=== PATIENT | female | born 1975 | race Caucasian/White ===

== ENCOUNTER 2018-11-09 17:04 | Emergency (ER) | payer OTHER ==
[~2018-11-09] VITALS: Ht 157.5 cm; Wt 58.0 kg
[~2018-11-09 17:04] MED LIST: BACTRIM PO; BUPR100T14 PO; CARAS PO; HALO10TA PO; OMEG-158 PO; PANT40TA4 PO; PRED10TA PO; PRED20TA PO; PRED50TA PO; PRED5TAB PO
[2018-11-09 17:18] VITALS: Ht 157.5 cm; Wt 58.0 kg
[2018-11-09] MEDS ORDERED: ASPIRIN 325 MG TAB PO STA (20:14)
[2018-11-09] MEDS ORDERED: FAMOTIDINE 20 MG INJ IV STA (20:47)
[2018-11-09] MEDS ORDERED: BELLADONNA/PHENOBARBITAL TAB PO STA (20:47)
[2018-11-09] MEDS ORDERED: LIDOCAINE/MYLANTA 40 ML BTL PO STA (20:47)
[2018-11-09] MEDS ORDERED: FAMOTIDINE 20 MG TAB PO ONE (21:30)
[2018-11-10 01:52] VITALS: BP 130/82; PULSE 78; RESP 17
== END 2018-11-10 01:54 | disposition home or self-care (01) ==
LOC: FTE 17:04 → E/R 11-10 01:54
DX: K20.9 Esophagitis, unspecified (principal); G89.29 Other chronic pain; F11.20 Opioid dependence, uncomplicated
CPT/HCPCS: 36415; 80053; 81001; 83690; 84484; 84703; 85025; 85610; 85730; 86850; 86900; 86901; 93005; Z7502; Z7610

== ENCOUNTER 2018-12-14 11:54 | Emergency (ER) | payer OTHER ==
[~2018-12-14] VITALS: Ht 160 cm; Wt 59.3 kg
[~2018-12-14 11:54] MED LIST changes: +ACET325T33 PO; +ASPI-817 PO; +ELTR50TA PO; +ISOS30TA67 PO; +LORA-444 PO; +METO10TA92 PO; +NITR0.4T32 SL; +PANT40TA3 PO; +TRAM50TA PO; +TRAM50TA2 PO
[2018-12-14 12:16] VITALS: Ht 160 cm; Wt 59.3 kg
[2018-12-14] MEDS ORDERED: FAMOTIDINE 20 MG INJ IV STA (14:19)
[2018-12-14] MEDS ORDERED: ONDANSETRON 4 MG INJ IV STA (14:19)
[2018-12-14] MEDS ORDERED: SOD CHLORIDE 0.9% 1,000 ML IV STA (14:19)
[2018-12-14] MEDS ORDERED: HYDROmorphONE 1 MG/ML SYG IV STA (14:19)
[2018-12-14] MEDS ORDERED: LIDOCAINE/MYLANTA 40 ML BTL PO STA (14:19)
[2018-12-14 16:49] VITALS: BP 120/65; PULSE 89; RESP 18
== END 2018-12-14 16:56 | disposition home or self-care (01) ==
LOC: FTE 11:54
DX: K29.70 Gastritis, unspecified, without bleeding (principal)
CPT/HCPCS: 36415; 71045; 80053; 81003; 81025; 83690; 84484; 85025; 93005; 96374; 96375; J1170; J2405; J7030; Z7502; Z7610

== ENCOUNTER 2019-01-15 13:18 | Inpatient (IN) | payer OTHER ==
[~2019-01-15] VITALS: Ht 157.5 cm; Wt 58.4 kg
[~2019-01-15 13:18] MED LIST changes: -ELTR50TA PO; -TRAM50TA PO
[2019-01-15] MEDS ORDERED: METOCLOPRAMIDE 10 MG INJ IV STA (17:17)
[2019-01-15] MEDS ORDERED: morphine 4 MG/ML VIAL IV STA (17:17)
[2019-01-15] MEDS ORDERED: LIDOCAINE/MYLANTA 40 ML BTL PO STA (17:17)
[2019-01-15] MEDS ORDERED: PANTOPRAZOLE 40 MG INJ IV ONE (17:30)
[2019-01-15] MEDS ORDERED: DEXAMETHASONE 10 MG/ML 1 ML INJ IV ONE (17:30)
[2019-01-15] MEDS ORDERED: ONDANSETRON 4 MG INJ IV PRN (19:30)
[2019-01-15] MEDS ORDERED: ACETAMINOPHEN 325 MG TAB PO PRN (19:30)
[2019-01-16] MEDS ORDERED: NACL 0.9% 3 ML SYG IV SCH (02:30)
[2019-01-16] MEDS ORDERED: ONDANSETRON 4 MG INJ IV PRN (02:30)
[2019-01-16] MEDS ORDERED: ACETAMINOPHEN 325 MG TAB PO PRN (02:30)
[2019-01-16] MEDS ORDERED: NITROGLYCERIN (SL) 0.4 MG TAB SL PRN ×2 (02:30→14:30)
[2019-01-16] MEDS ORDERED: ALBUTEROL/IPRATROPIUM (NEB) 3 ML AMP HHN PRN (02:30)
[2019-01-16] MEDS: PANTOPRAZOLE (EC) 40 MG TAB PO SCH (05:03)
[2019-01-16] MEDS ORDERED: OMEGA PO SCH (09:00)
[2019-01-16] MEDS ORDERED: ASPIRIN 81 MG TAB PO SCH (09:00)
[2019-01-16] MEDS ORDERED: DHA PO SCH (09:00)
[2019-01-16] MEDS ORDERED: FISH OIL PO SCH (09:00)
[2019-01-16] MEDS ORDERED: HALOPERIDOL 10 MG TABLET PO SCH (09:00)
[2019-01-16] MEDS ORDERED: EPA PO SCH (09:00)
[2019-01-16] MEDS ORDERED: [UNRECOGNIZED DRUG - OTHER] PO SCH (09:00)
[2019-01-16] MEDS: FISH OIL 1,000 MG CAP PO SCH ×2 (09:27→20:13)
[2019-01-16] MEDS: BUPROPION 100 MG TAB PO SCH ×2 (09:27→21:16)
[2019-01-16] MEDS: SUCRALFATE (100 MG/ML) 10ML CUP PO SCH ×4 (09:31→20:13)
[2019-01-16] MEDS: HALOPERIDOL 10 MG TABLET PO SCH (09:36)
[2019-01-16] MEDS: traMADol 50 MG TAB PO PRN (14:53)
[2019-01-16] MEDS ORDERED: LORAZEPAM 1 MG TAB PO ONE (15:00)
[2019-01-16 16:29] VITALS: Ht 157.5 cm; Wt 58.4 kg
[2019-01-16 16:49] VITALS: BP 110/62; PULSE 67; RESP 18
[2019-01-16 20:00] VITALS: BP 110/61; PULSE 77; RESP 18
[2019-01-16] MEDS: ASPIRIN 81 MG TAB PO SCH ×2 (21:00→21:03)
[2019-01-17] VITALS (7 sets, daily range): BP systolic 106–143; BP diastolic 61–89; PULSE 66–82; RESP 16–18
[2019-01-17] MEDS: PANTOPRAZOLE (EC) 40 MG TAB PO SCH (06:23)
[2019-01-17] MEDS: ASPIRIN 81 MG TAB PO SCH (09:00)
[2019-01-17] MEDS: SUCRALFATE (100 MG/ML) 10ML CUP PO SCH ×4 (09:57→20:40)
[2019-01-17] MEDS: FISH OIL 1,000 MG CAP PO SCH ×2 (09:57→20:40)
[2019-01-17] MEDS: BUPROPION 100 MG TAB PO SCH ×2 (09:57→20:40)
[2019-01-17] MEDS ORDERED: IMMUNE GLOBULIN (GAMUNEX-C) 10 GM/100 ML IV ONE (12:30)
[2019-01-17] MEDS: IMMUNE GLOBULIN (IVIG) 200 ML IVPB SCH ×3 (14:09→17:58)
[2019-01-17] MEDS: traMADol 50 MG TAB PO PRN (20:40)
[2019-01-18] VITALS: BP 122/85; PULSE 79; RESP 18
[2019-01-18 02:00] VITALS: BP 128/73; PULSE 80; RESP 18
[2019-01-18 02:40] VITALS: BP 120/72; PULSE 80; RESP 18
[2019-01-18] MEDS: PANTOPRAZOLE (EC) 40 MG TAB PO SCH (05:46)
[2019-01-18 07:24] VITALS: BP 146/87; PULSE 85; RESP 18
[2019-01-18] MEDS: HALOPERIDOL 10 MG TABLET PO SCH (09:30)
[2019-01-18] MEDS: BUPROPION 100 MG TAB PO SCH (09:30)
[2019-01-18] MEDS: SUCRALFATE (100 MG/ML) 10ML CUP PO SCH ×3 (09:30→17:49)
[2019-01-18] MEDS: FISH OIL 1,000 MG CAP PO SCH (09:31)
[2019-01-18 14:54] VITALS: BP 125/82; PULSE 80
[2019-01-18] MEDS ORDERED: predniSONE 20 MG TAB PO SCH (16:00)
[2019-01-18] MEDS ORDERED: ISOSORBIDE MONONITRATE(SR)30 MG TAB PO SCH (16:00)
== END 2019-01-18 18:10 | disposition home or self-care (01) | DRG 313 ==
LOC: E/R 13:18 → CANRESERV 01-16 13:36 → TEL 01-16 13:57 → EDBEDREQSVC 01-16 14:09 → OBSVTOIN 01-17 15:10 → MS3 01-18 02:10
PROVIDERS: ADMIT Internal Medicine; ATTEND Internal Medicine
DX: R07.89 Other chest pain (principal); K92.2 Gastrointestinal hemorrhage, unspecified; D69.3 Immune thrombocytopenic purpura; I51.81 Takotsubo syndrome; K92.0 Hematemesis; E78.5 Hyperlipidemia, unspecified; E05.90 Thyrotoxicosis, unspecified without thyrotoxic crisis or storm; F20.9 Schizophrenia, unspecified; K29.70 Gastritis, unspecified, without bleeding; T38.0X5A Adverse effect of glucocorticoids and synthetic analogues, initial encounter; Y92.019 Unspecified place in single-family (private) house as the place of occurrence of the external cause
CPT/HCPCS: 71045; 80048; 80053; 80061; 82550; 82553; 83036; 83735; 84100; 84439; 84443; 84480; 84484; 84703; 85025; 93005; 96374; 96375; G0378; C9113; J1100; J1459; J2270; J2765; J7512